=== PATIENT | female | born 1990 | race African-American/Black ===

== ENCOUNTER 2020-06-12 10:30 | Outpatient (CLI) | payer MEDICAID ==
[2015-12-18 06:55] VITALS: BMI 40.1
[~2020-06-12 10:30] MED LIST: NAPROSYN500 MG PO; NORCO 5/325 TAB1 TA1 PO
== END 2020-06-12 11:30 | disposition home or self-care (01) ==
LOC: D.MAMMO 10:30
PROVIDERS: ATTEND Family Medicine
DX: D17.39 Benign lipomatous neoplasm of skin and subcutaneous tissue of other sites (principal)